=== PATIENT | female | born 1950 | race African-American/Black ===

== ENCOUNTER 2018-04-27 09:23 | Emergency (ER) | payer OTHER ==
[2018-04-27 09:37] VITALS: BP 180/89; PULSE 90; TEMP 98; BMI 26.6
--- NOTE | 2018-04-27 11:21 | PDOC ---
History of Present Illness - General Chief Complaint: Injury Stated Complaint: SLIP AND FALL Time Seen by Provider: 04/27/18 10:53 History Source: Patient Exam Limitations: No Limitations Past History - Travel Traveled outside of the country in the last 30 days: No Close contact w/someone who was outside of country & ill: No - Past Medical History Allergies/Adverse Reactions: Allergies Allergy/AdvReac Type Severity Reaction Status Date / Time codeine Allergy Verified 04/27/18 09:33 Home Medications: Ambulatory Orders Ibuprofen 600 mg PO Q6H #30 tablet 04/27/18 COPD: No CHF: No Diabetes: Yes HTN: Yes - Suicide/Smoking/Psychosocial Hx Smoking History: Never smoked Have you smoked in the past 12 months: No Information on smoking cessation initiated: No Hx Alcohol Use: No Drug/Substance Use Hx: No Review of Systems - Review of Systems Able to Perform ROS?: Yes Comments:: 04/27/18 12:48 CONSTITUTIONAL: Absent: fever, chills, diaphoresis, generalized weakness, malaise, loss of appetite HEENT: Absent: rhinorrhea, nasal congestion, throat pain, throat swelling, difficulty swallowing, mouth swelling, ear pain, eye pain, visual Changes CARDIOVASCULAR: Absent: chest pain, loss of consciousness, palpitations, irregular heart rate, peripheral edema RESPIRATORY: Absent: cough, shortness of breath, dyspnea with exertion, orthopnea, wheezing, stridor, hemoptysis GASTROINTESTINAL: Absent: abdominal pain, abdominal distension, nausea, vomiting, diarrhea, constipation, melena, hematochezia GENITOURINARY: Absent: dysuria, frequency, urgency, hesitancy, hematuria, flank pain, genital pain MUSCULOSKELETAL: Absent: myalgia, arthralgia, joint swelling SKIN: Absent: rash, itching, pallor HEMATOLOGIC/IMMUNOLOGIC: Absent: easy bleeding, easy bruising, lymphadenopathy, frequent infections ENDOCRINE: Absent: unexplained weight gain, unexplained weight loss, heat intolerance, cold intolerance NEUROLOGIC: Absent: headache, focal weakness or paresthesias, dizziness, unsteady gait, seizure, mental status changes, bladder or bowel incontinence PSYCHIATRIC: Absent: anxiety, depression, suicidal or homicidal ideation, hallucinations. Is the patient limited Swedish proficient: No *Physical Exam - Vital Signs Last Vital Signs Temp Pulse Resp BP Pulse Ox 98.0 F 90 16 180/89 H 100 04/27/18 09:34 04/27/18 09:34 04/27/18 09:34 04/27/18 09:34 04/27/18 09:34 - Physical Exam Comments: 04/27/18 12:48 GENERAL: Well developed, well nourished. Awake and alert. No acute distress. HEENT: Normocephalic, atraumatic. PERRLA, EOMI. No conjunctival pallor. Sclera are non- icteric. Moist mucous membranes. Oropharynx is clear. NECK: Supple. Full ROM. No JVD. Carotid pulses 2+ and symmetric, without bruits. No thyromegaly. No lymphadenopathy. CARDIOVASCULAR: Regular rate and rhythm. No murmurs, rubs, or gallops. Distal pulses are 2+ and symmetric. PULMONARY: No evidence of respiratory distress. Lungs clear to auscultation bilaterally. No wheezing, rales or rhonchi. ABDOMINAL: Soft. Non-tender. Non-distended. No rebound or guarding. No organomegaly. Normoactive bowel sounds. MUSCULOSKELETAL Normal range of motion at all joints. No bony deformities or tenderness. No CVA tenderness. EXTREMITIES: No cyanosis. No clubbing. No edema. No calf tenderness. SKIN: Warm and dry. Normal capillary refill. No rashes. No jaundice. NEUROLOGICAL: Alert, awake, appropriate. Cranial nerves 2-12 intact. No deficits to light touch and temperature in face, upper extremities and lower extremities. No motor deficits in the in face, upper extremities and lower extremities. Normoreflexic in the upper and lower extremities. Normal speech. Toes are down- going bilaterally. Gait is normal without ataxia. PSYCHIATRIC: Cooperative. Good eye contact. Appropriate mood and affect. Moderate Sedation - Procedure Monitoring Vital Signs: Procedure Monitoring Vital Signs Temperature 98.0 F 04/27/18 09:34 Pulse Rate 90 04/27/18 09:34 Respiratory Rate 16 04/27/18 09:34 Blood Pressure 180/89 H 04/27/18 09:34 O2 Sat by Pulse Oximetry (%) 100 04/27/18 09:34 *DC/Admit/Observation/Transfer Diagnosis at time of Disposition: Fall Qualifiers: Encounter type: initial encounter Qualified Code(s): W19.XXXA - Unspecified fall, initial encounter - Discharge Dispostion Disposition: HOME Condition at time of disposition: Stable Decision to Admit order: No - Referrals Referrals: Roberto,Goran, MD [Staff Physician] - - Patient Instructions Printed Discharge Instructions: How to Prevent Falls Additional Instructions: Your CAT scan was normal today. You have multiple bruises from falling. He did not have any broken bones. Please take Motrin 600 mg every 6 hours as needed for pain. He'll most likely be sore for a couple of days. Spoke with her primary care doctor this week. Return to the ER for any new or worsening symptoms. - Post Discharge Activity
[2018-04-27] MEDS ORDERED: IBUPROFEN 600 MG TABLET (FP) PO ONE ×2 (11:22→11:27)
== END 2018-04-27 13:04 | disposition home or self-care (01) ==
LOC: JERFT 09:23
DX: S09.93XA Unspecified injury of face, initial encounter (principal); W01.0XXA Fall on same level from slipping, tripping and stumbling without subsequent striking against object, initial encounter; Y93.89 Activity, other specified; Y92.89 Other specified places as the place of occurrence of the external cause; Y99.8 Other external cause status; I10 Essential (primary) hypertension; E11.9 Type 2 diabetes mellitus without complications
CPT/HCPCS: 70450-TC; 70486-TC; 99281-25

== ENCOUNTER 2018-07-25 15:08 | Emergency (ER) | payer OTHER ==
[2018-07-25 15:44] VITALS: BMI 22.1
[2018-07-25] MEDS ORDERED: ACETAMINOPHEN 500 MG TABLET (FP) PO ONE (16:06)
--- NOTE | 2018-07-25 16:28 | PDOC ---
History of Present Illness - General Chief Complaint: Blood Pressure Problem Stated Complaint: Blood Sugar Problem Time Seen by Provider: 07/25/18 15:24 History Source: Patient, Old Records Exam Limitations: No Limitations - History of Present Illness Initial Comments: HPI: 68 y/o female presenting to [facility] ER on referral from pts PCP office. She was seeking evaluation at the clinic for left hip pain when she was found to be hypertensive and hyperglycemic. She was transferred to this facility via EMS. Pt denies symptoms related to hyperglycemia or hypertension. Pt has a history of HTN managed with Lisinopril and diabetes managed with Metformin and unknown type of Insulin. Pt has not taken any of her medication in the past three days because of her hip pain. Pt complaining of pain to anterior aspect of right hip and into right suprapubic region. Described as a burning sensation. Denies rashes or bruising. Unable to identify worsening factors. Has achieved some relief with cooling pack. Believes it may have started in April 2018 approx. 1 week after she tripped and fell [place] the train platform. Denies difficulty ambulating. Denies significant OBGYN history. Denies h/o of abnormal PAP smears. Stopped menstruating at approx. age 45. PCP: Dr. Augustin Social Hx: - Tobacco: Denies - EtOH: Drinks occasionally. Endorses single glass of wine in past 24 hours. - Street drugs: Denies. 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 Review of Systems: In addition to that documented in the HPI above, the additional ROS was obtained : Constitutional: Denies fevers or chills Head: Denies acute vision change ENMT: Denies sore throat CV: Denies chest pain Resp: Denies SOB GI: Denies vomiting or diarrhea : Denies painful urination, hematuria, or increased urinary frequency MSK: Denies recent trauma Skin: Denies new rashes Neuro: Denies new numbness or tingling or weakness. Endorses chronic burning sensation in R and L foot. Endocrine: Denies polyuria Heme: Denies bleeding or bruising Past History - Past Medical History Allergies/Adverse Reactions: Allergies Allergy/AdvReac Type Severity Reaction Status Date / Time codeine Allergy Verified 07/25/18 15:44 Home Medications: Ambulatory Orders Ibuprofen 600 mg PO Q6H #30 tablet 04/27/18 COPD: No CHF: No Diabetes: Yes HTN: Yes - Suicide/Smoking/Psychosocial Hx Smoking History: Never smoked Have you smoked in the past 12 months: No Information on smoking cessation initiated: No Hx Alcohol Use: No Drug/Substance Use Hx: No Review of Systems - Review of Systems Able to Perform ROS?: Yes *Physical Exam - Vital Signs Last Vital Signs Temp Pulse Resp BP Pulse Ox 98.4 F 82 16 195/98 H 100 07/25/18 15:08 07/25/18 15:08 07/25/18 15:08 07/25/18 15:08 07/25/18 15:08 - Physical Exam Comments: Constitutional: Well-developed, well-nourished adult female in no acute distress or obvious discomfort. Found semi-fowlers on hospital bed. Alert and oriented x4. Answered all questions appropriately and completely. Speech was non -labored, non-pressured. Head: Normocephalic. No obvious external signs of trauma. Neck: Supple, trachea is midline. No JVD. Cardiovascular / Chest: Regular rate and regular rhythm. No murmur, rubs, clicks, or gallops. Peripheral pulses: radial pulses full. No anterior chest wall tenderness. Respiratory: Breathing unlabored. Equal chest rise and fall. Clear to auscultation bilaterally. No stridor, no wheezing, no rhonchi. MSK: Tenderness to L inguinal versus suprabupic region without grimace or guarding. No obvious mass or deformity when compared to R side. No lymphadenopathy. No rash, bruising, or other skin breakdown. Gastrointestinal: abdomen is soft, non-tender, non-distended. No overlying skin lesions or obvious signs of trauma. Neuro: Alert and oriented. Moving all four extremities spontaneously. Skin: Warm, dry, and intact. Psych: Affect: appropriate. Mood: normal. ED Treatment Course - LABORATORY CBC & Chemistry Diagram: 07/25/18 17:17 07/25/18 17:17 - ADDITIONAL ORDERS Additional order review: Laboratory Results 07/25/18 15:58 POC Glucometer 297 07/25/18 15:58 POC Glucometer 297 - RADIOLOGY Radiology Studies Ordered: Category Date Time Status HIP & PELVIS-LEFT [RAD] Stat Radiology 07/25/18 16:05 Ordered Medical Decision Making - Medical Decision Making *Reviewed vital signs, nursing notes, and prior visit documentation (if available). 68 y/o female presenting hypertensive and hyperglycemic. Suspect both are secondary to medication noncompliance over the past three days. Endorsing left hip versus lower left quadrant abdominal pain. No rebound or guarding. Plain films of left hip and pelvis unremarkable for acute pathology. CBC unremarkable for leukocytosis. CMP unremarkable for significant electrolyte derangement. Will obtain CT to evaluate further for abdominal pain. 19:18 Pt signed out to resident Dr. Shafer after he was verbally appraised of the pts HPI, current ED course, and plan of management. Will f/o on pending CT read. Anticipate discharge home with PCP and orthopedic f/u. Will order evening Lisinopril dose. *DC/Admit/Observation/Transfer Diagnosis at time of Disposition: Left hip pain, Left lower quadrant abdominal pain of unknown etiology Hypertension Qualifiers: Hypertension type: unspecified Qualified Code(s): I10 - Essential (primary) hypertension Hyperglycemia due to type 2 diabetes mellitus Qualifiers: Diabetes mellitus snf insulin use: with superintendent container terminal use Qualified Code(s): E11.65 - Type 2 diabetes mellitus with hyperglycemia - Referrals Referrals: Miguel Augustin MD [Primary Care Provider] - Anil Clement DO [Staff Physician] - - Patient Instructions - Post Discharge Activity
[2018-07-25] MEDS ORDERED: ACETAMINOPHEN 325 MG TABLET (FP) ONE (16:31)
[2018-07-25 17:27] LABS: BASO % 1.1 % (0-2.0); EOS % 0.6 % (0-4.5); HEMATOCRIT 43.7 % (32.4-45.2); HEMOGLOBIN 14.2 GM/dL (10.7-15.3); LYMPH % 44.8 % (8-40); MCH 26.2 pg (25.7-33.7); MCHC 32.5 g/dl (32.0-36.0); MEAN CELL VOLUME 80.6 fl (80-96); MEAN PLT VOLUME 8.4 fl (7.5-11.1); MONO % 8.4 % (3.8-10.2); NEUT % 45.1 % (42.8-82.8); PLATELET COUNT 250 K/MM3 (134-434); RBC 5.43 M/mm3 (3.60-5.2); RDW 12.9 % (11.6-15.6); WHITE BLOOD COUNT 4.4 K/mm3 (4.0-10.0)
[2018-07-25 18:12] LABS: ALBUMIN 3.5 g/dl (3.4-5.0); ALK PHOS 97 U/L (45-117); ANION GAP 6 MMOL/L (8-16); BILIRUBIN,TOTAL 0.3 mg/dL (0.2-1); BLOOD UREA NITROGEN 13 mg/dL (7-18); CALCIUM 9.5 mg/dL (8.5-10.1); CHLORIDE 100 mmol/L (98-107); CO2 28 mmol/L (21-32); CREATININE 0.7 mg/dL (0.55-1.3); GLUCOSE,RANDOM 295 mg/dL (74-106); POTASSIUM 3.7 mmol/L (3.5-5.1); SGOT/AST 14 U/L (15-37); SGPT/ALT 20 U/L (13-61); SODIUM 135 mmol/L (136-145); TOT PROT 7.4 g/dl (6.4-8.2)
[2018-07-25 18:26] LABS: PH,URINE 5.5 (5.0-8.0); URINE APPEARANCE CLEAR; URINE BILIRUBIN NEGATIVE (NEGATIVE); URINE COLOR YELLOW; URINE GLUCOSE (UA) 3+ (NEGATIVE); URINE KETONE TRACE (NEGATIVE); URINE LEUK ESTERASE NEGATIVE (NEGATIVE); URINE NITRITE NEGATIVE (NEGATIVE); URINE PROTEIN NEGATIVE (NEGATIVE); URINE UROBILINOGEN 0.2 mg/dL (0.2-1.0)
--- NOTE | 2018-07-25 19:24 | PDOC ---
*Physical Exam - Vital Signs Last Vital Signs Temp Pulse Resp BP Pulse Ox 98.3 F 82 17 197/92 H 99 07/25/18 17:36 07/25/18 17:36 07/25/18 17:36 07/25/18 17:36 07/25/18 17:36 ED Treatment Course - LABORATORY CBC & Chemistry Diagram: 07/25/18 17:17 07/25/18 17:17 - ADDITIONAL ORDERS Additional order review: Laboratory Results 07/25/18 07/25/18 07/25/18 18:16 17:17 17:16 Sodium 135 L Potassium 3.7 Chloride 100 Carbon Dioxide 28 Anion Gap 6 L BUN 13 Creatinine 0.7 Creat Clearance w eGFR 83.21 POC Glucometer Random Glucose 295 H Lactic Acid 1.2 Calcium 9.5 Total Bilirubin 0.3 AST 14 L ALT 20 Alkaline Phosphatase 97 Total Protein 7.4 Albumin 3.5 Urine Color Yellow Urine Appearance Clear Urine pH 5.5 Ur Specific [place] 1.020 Urine Protein Negative Urine Glucose (UA) 3+ H Urine Ketones Trace H Urine Blood Negative Urine Nitrite Negative Urine Bilirubin Negative Urine Urobilinogen 0.2 Ur Leukocyte Esterase Negative 07/25/18 15:58 Sodium Potassium Chloride Carbon Dioxide Anion Gap BUN Creatinine Creat Clearance w eGFR POC Glucometer 297 Random Glucose Lactic Acid Calcium Total Bilirubin AST ALT Alkaline Phosphatase Total Protein Albumin Urine Color Urine Appearance Urine pH Ur Specific [place] Urine Protein Urine Glucose (UA) Urine Ketones Urine Blood Urine Nitrite Urine Bilirubin Urine Urobilinogen Ur Leukocyte Esterase 07/25/18 07/25/18 17:17 15:58 RBC 5.43 H MCV 80.6 MCHC 32.5 RDW 12.9 MPV 8.4 Neutrophils % 45.1 Lymphocytes % 44.8 H Monocytes % 8.4 Eosinophils % 0.6 Basophils % 1.1 POC Glucometer 297 - Medications Given in the ED: ED Medications Discontinued Medications Generic Name Dose Route Start Last Admin Trade Name Freq PRN Reason Stop Dose Admin Acetaminophen 975 mg 07/25/18 16:06 07/25/18 16:36 Tylenol - PO 07/25/18 16:07 975 mg ONCE ONE Administration Medical Decision Making - Medical Decision Making 07/25/18 19:23 Pt signed out to me by Dr. Ferrari. 68F who presents from clinic for L sided pain x "few months". Pending CTAP. 07/25/18 20:42 CT Impression: Lack of oral contrast is limiting this exam. 1 cm low- attenuation density in the left hepatic lobe likely representing a small cyst. There is no evidence of small bowel obstruction. Normal stool burden in the colon without gross wall thickening. Lobulated contour of the uterus with multiple fibroids identified measuring up to 3.8 cm. There is also likely an approximately 2 cm left ovarian cyst. Mild to moderate central and left paracentral disc bulge at L5-S1 level likely reaching left S1 nerve root. Results d/w patient. Will d/c with PCP and OBGYN f/u. *DC/Admit/Observation/Transfer Diagnosis at time of Disposition: Left hip pain, Left lower quadrant abdominal pain of unknown etiology, Fibroid Hypertension Qualifiers: Hypertension type: unspecified Qualified Code(s): I10 - Essential (primary) hypertension Hyperglycemia due to type 2 diabetes mellitus Qualifiers: Diabetes mellitus usp insulin use: with usp use Qualified Code(s): E11.65 - Type 2 diabetes mellitus with hyperglycemia; Z79.4 - snf (current ) use of insulin Ovarian cyst Qualifiers: Laterality: left Qualified Code(s): N83.202 - Unspecified ovarian cyst, left side - Discharge Dispostion Disposition: HOME Condition at time of disposition: Stable Decision to Admit order: No - Referrals Referrals: Anil Clement DO [Staff Physician] - Miguel Augustin MD [Primary Care Provider] - Paul Serra MD [Staff Physician] - - Patient Instructions Printed Discharge Instructions: DI for Abdominal Pain-Adult Additional Instructions: Your ER visit is not complete until your follow up with your primary care physician. Please follow up with your primary care physician in 1-2 days. Please also follow up with Dr. Serra for your fibroids and cyst. Please return to the ER if you have any signs or symptoms of chest pain, shortness of breath, uncontrollable fever, chills, nausea, vomiting, numbness, tingling, or weakness in any part of your body, changes in vision, or slurred speech. Please take your medications as prescribed. Please return to the ER if symptoms persist, worsen, or new symptoms arise. - Post Discharge Activity
[2018-07-25] MEDS ORDERED: LISINOPRIL 20 MG TABLET (FP) PO ONE (19:25)
[2018-07-25] MEDS ORDERED: LISINOPRIL 20 MG TABLET (FP) ONE (19:45)
--- NOTE | 2018-07-25 20:41 | PDOC ---
Documentation entered by Ryan Browning SCRIBE, acting as scribe for Randa Reagan MD. Randa Reagan MD: This documentation has been prepared by the Nallely sampson Renju, SCRIBE, under my direction and personally reviewed by me in its entirety. I confirm that the documentation accurately reflects all work, treatment, procedures, and medical decision making performed by me. Attending Attestation - Resident Resident Name: Hi Ferrari - ED Attending Attestation I have performed the following: I have examined & evaluated the patient, The case was reviewed & discussed with the resident, I agree w/resident's findings & plan, Exceptions are as noted - HPI HPI: 07/25/18 17:04 68 year old female with a past medical history of hypertension, diabetes, and glaucoma in both eyes, who presents to the emergency department from her PCP's office for evaluation of elevated blood pressure and blood glucose. Patient states she visited her PCPs office for worsening left hip pain. Patient notes her pain may have started in April 2018 after tripping and falling on the train platform.She states she has not taken her medication in the last 3 days due to her left hip pain. Denies difficulty ambulating. Allergies: Codeine PCP: Dr. Augustin - Physicial Exam PE: 07/25/18 17:27 slender 68 yo female p/w several weeks of left lower quadrant pain head ncat lungs cta b/l cvs [id number] abd LLQ tendernesss to deep palpation but no rebound,+bs no cva tenderness extremities no deformity,motor strength 5/5,b/l Torso - there is chronic left hip soreness(since falling in April) skin warm and dry psych appropriate neuro axox3,ambulatory - Medical Decision Making 07/25/18 20:38 CAT scan of abdomen and pelvis reveals multiple fibroids, and left ovarian cyst. Normal appendix, normal gallbladder, normal adrenals, normal kidneys, no bowel obstruction, no signs of fecal impaction. There was hypodensity in the liver consistent with cysts Patient given a copy of the CAT scan she wsa told to follow-up with her doctor, particularly her land resource specialist. Glucose was 295 and she is instructed to be compliant with [facility] blood sugar medicine 1, hypertension, hypoglycemia due to noncompliance with meds Pelvic pain due to ovarian cyst and multiple fibroid uterus 07/25/18 20:40
[2018-07-25 20:43] VITALS: BP 190/95; PULSE 75; TEMP 98.1
--- NOTE | 2018-07-26 10:45 | EKG ---
Test Reason : Blood Pressure : / mmHG Vent. Rate : 080 BPM Atrial Rate : 080 BPM P-R Int : 154 ms QRS Dur : 078 ms QT Int : 384 ms P-R-T Axes : 059 -07 055 degrees QTc Int : 442 ms NORMAL SINUS RHYTHM MINIMAL VOLTAGE CRITERIA FOR LVH, MAY BE NORMAL VARIANT BORDERLINE ECG WHEN COMPARED WITH ECG OF 15-FEB-2009 09:11, NO SIGNIFICANT CHANGE WAS FOUND Confirmed by CHAPO GALLEGOS, JOSE ([id number]) on 07/26/2018 10:44:55 AM Referred By: Confirmed By:JOSE COWAN MD
== END 2018-07-25 20:52 | disposition home or self-care (01) ==
LOC: JER 15:08
DX: M25.552 Pain in left hip (principal); N83.202 Unspecified ovarian cyst, left side; D25.9 Leiomyoma of uterus, unspecified; E11.65 Type 2 diabetes mellitus with hyperglycemia; I10 Essential (primary) hypertension; Z91.14 Patient's other noncompliance with medication regimen
CPT/HCPCS: 36415; 73523-TC-FY; 74177-TC; 80053; 81003; 82962; 83605; 85025; 87086; 93005; 93010; 99283-25